=== PATIENT | female | born 1935 | race Native Hawaiian/Other Pacific Islander ===

== ENCOUNTER 2018-11-28 10:37 | Outpatient (CLI) | payer MEDICARE, OTHER | END 2018-11-28 10:38 | disposition home or self-care (01) | LOC: C.LAB 10:37 ==

== ENCOUNTER → 2018-12-03 | Outpatient (CLI) | payer MEDICARE, OTHER | LOC: C.CTH 08:25 | DX: C07 Malignant neoplasm of parotid gland (principal) ==